=== PATIENT | female | born 1990 | race Caucasian/White ===

== ENCOUNTER 2018-06-30 14:13 | Emergency (ER) | payer SELFPAY ==
[2018-06-30 14:28] VITALS: BP 101/72
[2018-06-30] MEDS ORDERED: KETOROLAC TROMETH 60MG/2ML VIAL IM ONE (15:00)
== END 2018-06-30 15:28 | disposition home or self-care (01) ==
LOC: ER 14:17
DX: M54.9 Dorsalgia, unspecified (principal); G89.29 Other chronic pain; Z76.0 Encounter for issue of repeat prescription
CPT/HCPCS: 96372; 99283; J1885

== ENCOUNTER 2018-06-30 15:42 | Emergency (ER) | payer SELFPAY ==
[~2018-06-30] VITALS: Ht 160 cm; Wt 50.8 kg
[2018-06-30 16:10] VITALS: BP 104/58
[2018-06-30] MEDS ORDERED: MORPHINE SULFATE 4 MG/ML SYR/VIAL IM ONE (16:15)
== END 2018-06-30 17:32 | disposition home or self-care (01) ==
LOC: ER 15:48
DX: G89.4 Chronic pain syndrome (principal); M06.9 Rheumatoid arthritis, unspecified
CPT/HCPCS: 96372; 99283; J2270